=== PATIENT | female | born 1975 | race African-American/Black ===

== ENCOUNTER 2016-05-06 17:56 | Emergency (ER) | payer MEDICAID, OTHER ==
[~2016-05-06] VITALS: Ht 167.6 cm; Wt 130.0 kg
[~2016-05-06 17:56] MED LIST: ALBUAER3 INH; APIX5TAB PO; CYCL1TAB29 PO; FLUT50SP EACH NARE; FURO20TA PO; MACR100C2 PO; MENT10SP3 TOPICAL; METO25TA6 PO; OMEP20TA PO; PERC7.5T13 PO; REST15CA PO; SOTA80TA PO; SPIR25TA PO; SYMB80AE INH; WALKER WHEELS/F1 MIS; WHEEMIS3; [UNRECOGNIZED DRUG - OTHER]; [UNRECOGNIZED DRUG - SUPPLY]; salonpas patch TOP
[2016-05-06 17:58] VITALS: BP 137/70; PULSE 113; RESP 14; TEMP 98.6; O2SAT 99
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
[2016-05-09] MEDS ORDERED: FLUT50SP EACH NARE (19:56)
[2016-06-06] MEDS ORDERED: CYCL1TAB29 PO (12:17)
[2016-08-27] MEDS ORDERED: GABA600T PO (15:08)
[2016-08-27] MEDS ORDERED: ZANA4CAP PO (15:20)
[2016-09-02] MEDS ORDERED: TIZA4TAB PO (09:34)
[2016-10-14] MEDS ORDERED: TIZA4TAB PO (10:40)
== END 2016-05-06 21:19 | disposition home or self-care (01) ==
LOC: NEPB 17:56
DX: S02.5XXA Fracture of tooth (traumatic), initial encounter for closed fracture (principal); E78.00 Pure hypercholesterolemia, unspecified; Z86.718 Personal history of other venous thrombosis and embolism; Z86.711 Personal history of pulmonary embolism; I27.2 Other secondary pulmonary hypertension; X58.XXXA Exposure to other specified factors, initial encounter
CPT/HCPCS: 99283

== ENCOUNTER 2016-08-12 12:52 | Emergency (ER) | payer OTHER, MEDICAID ==
[~2016-08-12] VITALS: Ht 167.6 cm; Wt 134.1 kg
[2016-08-12 12:55] VITALS: BP 146/83; PULSE 108; RESP 18; TEMP 98.4; O2SAT 100
[2016-08-12] MEDS ORDERED: ORPHENADRINE INJ 60 MG/2 ML AMP IM ONE (13:15)
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
[2016-08-12] MEDS ORDERED: oxyCODONE/ACETAMINOPHEN 5 MG/325 MG TAB PO ONE (13:45)
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
[2016-08-27] MEDS ORDERED: GABA600T PO (15:08)
[2016-08-27] MEDS ORDERED: ZANA4CAP PO (15:20)
[2016-09-02] MEDS ORDERED: TIZA4TAB PO (09:34)
[2016-10-14] MEDS ORDERED: TIZA4TAB PO (10:40)
[2016-10-31] MEDS ORDERED: FURO1TAB62 PO (10:11)
== END 2016-08-12 16:09 | disposition home or self-care (01) ==
LOC: NEPD 12:52
DX: S16.1XXA Strain of muscle, fascia and tendon at neck level, initial encounter (principal); M54.5 Low back pain; V49.50XA Passenger injured in collision with unspecified motor vehicles in traffic accident, initial encounter
CPT/HCPCS: 72100; 72125; 96372; 99284; J2360; L0150

== ENCOUNTER → 2016-10-22 | Outpatient (CLI) | payer MEDICARE ==
[~2016-10-22] MED LIST changes: -CYCL1TAB29 PO; -FURO20TA PO; -MACR100C2 PO; +TIZA4TAB PO; -WALKER WHEELS/F1 MIS; -WHEEMIS3; -[UNRECOGNIZED DRUG - OTHER]; -[UNRECOGNIZED DRUG - SUPPLY]
[2016-10-22 11:19] LABS: AUTOMATED NEUTROPHIL # 6.7 TH/MM3 (1.8-7.7); BASOPHIL # 0.1 TH/MM3 (0-0.2); BASOPHIL % 0.6 % (0.0-2.0); EOSINOPHIL # 0.1 TH/MM3 (0-0.4); EOSINOPHIL % 0.6 % (0.0-4.0); HEMATOCRIT 41.6 % (35.0-46.0); HEMO FLAGS DIFF FINAL; LYMPH % 18.7 % (9.0-44.0); LYMPHOCYTE # 1.7 TH/MM3 (1.0-4.8); MEAN CELL VOLUME 79.9 FL (80.0-100.0); MEAN CORPUSCULAR HEMOGLOBIN 25.2 PG (27.0-34.0); MEAN CORPUSCULAR HGB CONC 31.5 % (32.0-36.0); NEUT % 73.1 % (16.0-70.0); PLATELET COUNT 285 TH/MM3 (150-450); RED CELL DISTRIBUTION WIDTH 14.3 % (11.6-17.2); WHITE BLOOD COUNT 9.2 TH/MM3 (4.0-11.0)
[2016-10-22 11:23] LABS: BLOOD, URINE TRACE (NEG); GLUCOSE,URINE NEG (NEG); KETONE, URINE NEG (NEG); NITRITE,URINE NEG (NEG); PH, URINE 6.5 (5.0-8.5); SQUAMOUS EPITHELIAL CELL URINE 1 /hpf (0-5); URINE COLOR YELLOW (YELLW/STRAW)
[2016-10-22 11:26] LABS: COMMENT (UR) CULT NOT INDICATED; CULTURE IF INDICATED CULT NOT INDICATED
[2016-10-22 11:42] LABS: ANION GAP 7 MEQ/L (5-15); AST (GOT) 38 U/L (15-37); BICARBONATE 29.2 MEQ/L (21.0-32.0); BLOOD UREA NITROGEN 10 MG/DL (7-18); CHLORIDE 104 MEQ/L (98-107); GLOMERULAR FILTRATION RATE 69 ML/MIN (>89); GLUCOSE,FASTING 83 MG/DL (74-99); MAGNESIUM 2.3 MG/DL (1.5-2.5); POTASSIUM 3.9 MEQ/L (3.5-5.1); SODIUM (NA) 140 MEQ/L (136-145)
[2016-10-22 12:08] LABS: ALKALINE PHOSPHATASE 91 U/L (45-117); ALT (GPT) 86 U/L (10-53); FERRITIN 84 NG/ML (8-252); FREE T3 2.13 PG/ML (2.18-3.98); FREE T4 0.92 NG/DL (0.76-1.46); HDL CHOLESTEROL 70.6 MG/DL (40.0-60.0); LDL CHOLESTEROL 134 MG/DL (0-99); TOTAL BILIRUBIN ADULT 0.6 MG/DL (0.2-1.0); TRANSFERRIN IRON PROFILE 281 MG/DL (200-360)
--- NOTE | 2016-10-22 17:00 | EKG ---
Date Performed: 10/22/2016 Time Performed: 13:00:32 PTAGE: 41 years EKG: Sinus rhythm NORMAL ECG PREVIOUS TRACING : 11/16/2015 17.06 Compared to previous tracing, QRS voltage has increased in the precordial leads. DOCTOR: Gibran Velasquez Interpretating Date/Time 10/22/2016 16:56:25
== END ==
LOC: CLAB 09:33
PROVIDERS: ATTEND Surgery
DX: D64.9 Anemia, unspecified (principal); I10 Essential (primary) hypertension; R22.1 Localized swelling, mass and lump, neck; R00.2 Palpitations; E55.9 Vitamin D deficiency, unspecified; R53.83 Other fatigue; M62.838 Other muscle spasm; I47.1 Supraventricular tachycardia; R19.7 Diarrhea, unspecified; E66.1 Drug-induced obesity; Z86.39 Personal history of other endocrine, nutritional and metabolic disease
CPT/HCPCS: 36415; 80053; 80061; 81001; 82306; 82607; 82728; 82746; 83540; 83550; 83735; 83970; 84100; 84439; 84443; 84481; 84590; 85025; 93005

== ENCOUNTER → 2016-10-25 | Outpatient (CLI) | payer MEDICARE ==
[~2016-10-25] MED LIST changes: +FURO1TAB62 PO
== END ==
LOC: CLAB 11:03
PROVIDERS: ATTEND Surgery
DX: E66.01 Morbid (severe) obesity due to excess calories (principal)
CPT/HCPCS: 87338

== ENCOUNTER → 2016-12-06 | Day surgery (SDC) | payer MEDICARE, OTHER ==
[~2016-12-06] MED LIST changes: +LACTATED RINGER'S 1000 ML INJ 1,000 ML ONE; +MEDR4PAK PO; +PROPOFOL 200 MG/20 ML AMP IV ONE; +diphenhydrAMINE HCL 50 MG/ML VIAL ONE
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
== END | disposition home or self-care (01) ==
LOC: ESDC 07:31
PROVIDERS: ATTEND Surgery
DX: R12 Heartburn (principal); K22.70 Barrett's esophagus without dysplasia; K29.70 Gastritis, unspecified, without bleeding
CPT/HCPCS: 00740; 43239; 88305; 88312; J1200; J3010; J7120

== ENCOUNTER → 2016-12-24 | Outpatient (CLI) | payer MEDICARE, MEDICAID ==
[~2016-12-24] MED LIST changes: -LACTATED RINGER'S 1000 ML INJ 1,000 ML ONE; -PROPOFOL 200 MG/20 ML AMP IV ONE; -diphenhydrAMINE HCL 50 MG/ML VIAL ONE
--- NOTE | 2016-12-30 11:48 | RSPPFT ---
DATE OF PROCEDURE: 12/24/16 COMMENTS: Spirometry with normal flow rates and ratios. Slow vital capacity is 80% of predicted. TLC is 86%. Diffusion capacity is mildly reduced however is normal when related to alveolar volume. IMPRESSION: 1. No evidence of airways obstruction. 2. No evidence of airways restriction. 3. Non-significant response to acutely inhaled bronchodilator. 4. Reduced diffusion but normal when related to alveolar volume.
== END ==
LOC: HRSP 10:32
PROVIDERS: ATTEND Internal Medicine Sleep Medicine
DX: R06.09 Other forms of dyspnea (principal)
CPT/HCPCS: 94060; 94726; 94729

== ENCOUNTER → 2017-05-16 | Outpatient (CLI) | payer MEDICARE, MEDICAID ==
[~2017-05-16] MED LIST changes: +ALBU.5I NEB; +AZIT500T2 PO; +DIPH25CA PO; +GUAI100S5 PO; +LYRI50CA PO; -MENT10SP3 TOPICAL; +MENT4GEL2 TOPICAL; +METO1TAB42 PO; -METO25TA6 PO; +MOME17I EACH NARE; +NEBUKIT5; +NYST1OIN TOPICAL; -OMEP20TA PO; +PILO5 PO; +RANI150T PO; +TIOT12.9 INH; +ZOFR4TAB3 SL
[2017-05-16 10:41] LABS: AUTOMATED NEUTROPHIL # 2.6 TH/MM3 (1.8-7.7); BASOPHIL % 0.2 % (0.0-2.0); EOSINOPHIL % 0.1 % (0.0-4.0); HEMATOCRIT 40.4 % (35.0-46.0); HEMOGLOBIN 12.9 GM/DL (11.6-15.3); LYMPH % 31.8 % (9.0-44.0); LYMPHOCYTE # 1.4 TH/MM3 (1.0-4.8); MEAN CELL VOLUME 82.3 FL (80.0-100.0); MEAN CORPUSCULAR HEMOGLOBIN 26.2 PG (27.0-34.0); MEAN CORPUSCULAR HGB CONC 31.9 % (32.0-36.0); MONO % 9.7 % (0.0-8.0); MONOCYTE # 0.4 TH/MM3 (0-0.9); NEUT % 58.2 % (16.0-70.0); PLATELET COUNT 336 TH/MM3 (150-450); RED BLOOD COUNT 4.91 MIL/MM3 (4.00-5.30); RED CELL DISTRIBUTION WIDTH 13.7 % (11.6-17.2); WHITE BLOOD COUNT 4.5 TH/MM3 (4.0-11.0)
[2017-05-16 11:02] LABS: BICARBONATE 30.7 MEQ/L (21.0-32.0); CALCIUM 8.6 MG/DL (8.5-10.1); CREATININE 1.18 MG/DL (0.50-1.00); MAGNESIUM 2.3 MG/DL (1.5-2.5)
== END ==
LOC: CLAB 09:50
PROVIDERS: ATTEND Family Medicine
DX: N12 Tubulo-interstitial nephritis, not specified as acute or chronic (principal); E55.9 Vitamin D deficiency, unspecified; R53.83 Other fatigue; R00.0 Tachycardia, unspecified; K13.0 Diseases of lips
CPT/HCPCS: 36415; 80048; 82306; 82607; 83735; 84630; 85025; 87086

== ENCOUNTER 2017-05-18 17:52 | Emergency (ER) | payer MEDICARE, MEDICAID ==
[~2017-05-18] VITALS: Ht 167.6 cm; Wt 126.2 kg
[~2017-05-18 17:52] MED LIST changes: -AZIT500T2 PO
[2017-05-18 17:55] VITALS: BP 134/69; PULSE 92; RESP 20; TEMP 98.7; O2SAT 98
[2017-05-21] MEDS ORDERED: FLUT50SP EACH NARE (12:08)
[2017-05-23] MEDS ORDERED: AZIT500T2 PO (15:40)
[2017-05-28] MEDS ORDERED: PILO5 PO (20:40)
== END 2017-05-18 18:46 | disposition left against medical advice (07) ==
LOC: NED 17:52
DX: Z53.21 Procedure and treatment not carried out due to patient leaving prior to being seen by health care provider (principal)
CPT/HCPCS: 99281